=== PATIENT | male | born 1940 | race Caucasian/White ===

== ENCOUNTER → 2016-12-05 | Day surgery (SDC) | payer MEDICARE, OTHER ==
[~2016-12-05] VITALS: Ht 167.6 cm; Wt 100.0 kg
[~2016-12-05] MED LIST: ALBU8.5H2 INHALATION; ASPI-973 PO; CALC600T12 PO; CAR8A PO; CITA20TA11 PO; DSLF250T PO; DULO60CA61 PO; GABA-500 PO; LIP40 PO; LISI10TA PO; MELO-253 PO; METO-272 PO; METR55GE TOP; MULT-1039 PO; POLY17PO6 PO; PSYL0.4C2 PO; ROB500 PO; SILD20TA14 PO; Sodium Chloride LOK Flush 10 mL Syringe IV PRN; UMEC1DIS IH; VIT1CAPS8 PO; fentaNYL-PF 50 mCg/mL 2 mL Inj IVPUSH PRN
[2016-12-05 13:17] VITALS: BP 116/71; PULSE 94; RESP 16; O2SAT 94
[2016-12-05] MEDS: 0.9% Sodium Chloride 1,000 ML IV PRN ×2 (14:06→14:12)
[2016-12-05 14:19] VITALS: BP 107/72; PULSE 60; RESP 16; O2SAT 96
[2016-12-05 14:29] VITALS: BP 135/76; PULSE 66; RESP 16; O2SAT 94
--- NOTE | 2016-12-05 17:49 | ENDO ---
[address] [address] ENDOSCOPY PROCEDURE PATIENT: JENA LEAL : 1940 MR#: [id number] ADMIT: 12/05/2016 JOB ID: [id number] DATE OF SERVICE: 12/05/2016 PROCEDURE: Colonoscopy. INDICATIONS: Constipation. The patient's ASA classification is 2, Mallampati score 2. MEDICATIONS: 1. Versed 4 mg. 2. Fentanyl 75 mcg. INSTRUMENT USED: PCF H 180L. PREPARATION QUALITY: Fair. PROCEDURE DETAILS: After informed consent was obtained, the patient was brought to the GI suite, where he was placed on oxygen via nasal cannula and monitored with continuous pulse oximeter, telemetry, and blood pressure monitoring. A time-out was performed. Then, he was placed in a left lateral decubitus position and medications were administered for sedation. Digital rectal exam was performed which was unremarkable. The colonoscope was then inserted into the rectum and advanced under direct visualization to the cecum, which was identified by the presence of the ileocecal valve and appendiceal orifice. Once the cecum was reached, the colonoscope was withdrawn back into the rectum and mucosa and lumen were examined. In the rectum, retroflexion was performed. Following retroflexion, remaining air in the rectum was suctioned, and procedure was completed. FINDINGS: 1. In the transverse colon, there were four polyps that ranged from diminutive to approximately 7 mm. They were removed with a combination of cold biopsy forceps, cold snare and hot snare. 2. Scattered diverticula were seen throughout the left side of the colon. 3. Internal hemorrhoids. RECOMMENDATIONS: 1. Avoid NSAIDs and anticoagulants for 72 hours. 2. Fiber-rich diet. 3. Repeat colonoscopy in two years. COMPLICATIONS: None. ESTIMATED BLOOD LOSS: Less than 5 mL.
--- NOTE | 2016-12-09 16:31 | PATH ---
SURGICAL PATHOLOGY Attending Physician:Cece Fletcher CASE STATUS: Signed Out PATIENT NAME: JENA LEAL PID: [id number] : 1940 DATE COLLECTED:12/05/2016 00:00 SPECIMEN: Colon, Polyp CLINICAL HISTORY: 1). TRANSVERSE COLON POLYP FINAL DIAGNOSIS: Transverse Colon, Polyp, Biopsy: Tubular adenoma. ICD10: D12.3 GROSS DESCRIPTION: The specimen is received in formalin, labeled with the patient's name, sublabeled as transverse colon polyp, and consists of multiple fragments of baird glistening semi-translucent tissue (2.0 x 0.5 x 0.2 cm in aggregate). Section code: (A) tissue. Specimen entirely submitted. 12/07/16 ICD-9 CODES: CPT CODES: 1: 20130 Electronically Signed Out Sarah Cruz MD [facility] Pathology [facility] [address], [place] [address] Technical component performed at [facility], [facility] [address], [address]
== END | disposition home or self-care (01) ==
LOC: END 01:33
PROVIDERS: ATTEND Internal Medicine Gastroenterology
DX: K59.00 Constipation, unspecified (principal); D12.3 Benign neoplasm of transverse colon; K57.30 Diverticulosis of large intestine without perforation or abscess without bleeding; K64.8 Other hemorrhoids; Z86.010 Personal history of colon polyps; I10 Essential (primary) hypertension; E78.5 Hyperlipidemia, unspecified; I25.10 Atherosclerotic heart disease of native coronary artery without angina pectoris; Z79.82 Long term (current) use of aspirin
CPT/HCPCS: 45380; 45385; 99153; G0500; J2250; J3010; J7030